=== PATIENT | male | born 1970 | race Caucasian/White ===

== ENCOUNTER 2017-05-01 19:43 | Emergency (ER) | payer SELFPAY ==
[~2017-05-01] VITALS: Ht 177.8 cm; Wt 80.0 kg
[2017-05-01 20:01] VITALS: BP 134/95; PULSE 84; RESP 18; TEMP 98.4; O2SAT 100
[2017-05-01] MEDS ORDERED: IBUPROFEN 800 MG TAB PO ONE (20:15)
--- NOTE | 2017-05-01 20:17 | PD ---
HPI Chief Complaint: Injury Time Seen by Provider: 20:12 Travel History International Travel<30 days: No Contact w/Intl Traveler<30days: No Traveled to known affect area: No History of Present Illness HPI 46-year-old male presents to the emergency department for evaluation of right foot pain. Patient states that 2 weeks ago he went to kick a soccer ball when he kicked the ground instead. He was seen at [place] hospital [place] who x-ray today and told him there was no fracture. Patient states that he got a boot and has been wearing it with some improvement. He has noticed some ecchymosis since the original injury. However, today, he states he was going into spiritism and he might have hit his foot because he has had worsening pain since. Patient rates the pain 9/10, worse with movement, ambulation. Moderate severity. PFSH Past Medical History Medical History: Denies Significant Hx Diminished Hearing: No Tetanus Vaccination: < 5 Years Influenza Vaccination: No Past Surgical History Ear Surgery: Yes (tubes as a child B/L ears) Other Surgery: Yes (adniods) Social History Alcohol Use: No Tobacco Use: No Substance Use: No Allergies-Medications (Allergen,Severity, Reaction): Coded Allergies: No Known Allergies (Unverified , 05/01/17) Review of Systems Except as stated in HPI: all other systems reviewed are Neg Physical Exam Narrative GENERAL: Well-nourished, well-developed male patient, afebrile. SKIN: Focused skin assessment warm/dry. Patient has ecchymosis noted to the distal aspect of the right foot. HEAD: Normocephalic. Atraumatic. EYES: No scleral icterus. No injection or drainage. NECK: Supple, trachea midline. No JVD or lymphadenopathy. CARDIOVASCULAR: Right pedal pulse 2+. RESPIRATORY: No accessory muscle use. MUSCULOSKELETAL: No cyanosis, or edema. Patient has tenderness to palpation over right dorsal foot. No ankle tenderness to palpation. He has full sensation distal right lower extremity. Data Data Last Documented VS Vital Signs Date Time Temp Pulse Resp B/P (MAP) Pulse Ox O2 Delivery O2 Flow Rate FiO2 05/01/17 20:01 98.4 84 18 134/95 (108) 100 Orders Orders Foot, Complete ([id number]) (05/01/17 ) Ibuprofen (Motrin) (05/01/17 20:15) MDM Medical Decision Making Medical Screen Exam Complete: Yes Emergency Medical Condition: Yes Medical Record Reviewed: Yes Differential Diagnosis Fracture versus contusion versus sprain Narrative Course 46-year-old male presents to the emergency department for evaluation of right foot pain/possible injury. X-ray of the right foot is ordered and pending. Patient is given ibuprofen 800 mg by mouth. X-ray of the right foot is pending. YAW Bowman will follow up on x-ray results and disposition patient. Gladys Casey May 01, 2017 20:17
--- NOTE | 2017-05-01 21:09 | RADRPT ---
EXAM DATE/TIME: 05/01/2017 20:23 [facility] COMPARISON: No previous studies available for comparison. INDICATIONS : Right foot pain for 2 weeks. Patient has had the right foot pain since kicking a soccer ball. Pain mostly at the 1st and 2nd digit. MEDICAL HISTORY : None. SURGICAL HISTORY : None. ENCOUNTER: Initial ACUITY: 2 weeks PAIN SCORE: 4/10 LOCATION: Right foot. FINDINGS: There is a probable subtle acute fracture involving the base of the right first metatarsal. CONCLUSION: Probable subtle acute fracture involving the base of the right first metatarsal. Donal Trinh MD on May 01, 2017 at 21:04 Board Certified Radiologist. This report was verified electronically.
--- NOTE | 2017-05-01 21:23 | PD ---
Physical Exam Date Seen by Provider: May 01, 2017 Time Seen by Provider: 21:20 Narrative For full history and physical examination please see previous providers note. I assumed care of this patient change of shift, at that time x-ray of the foot was pending. Data Data Last Documented VS Vital Signs Date Time Temp Pulse Resp B/P (MAP) Pulse Ox O2 Delivery O2 Flow Rate FiO2 05/01/17 20:01 98.4 84 18 134/95 (108) 100 Orders Orders Foot, Complete ([id number]) (05/01/17 ) Ibuprofen (Motrin) (05/01/17 20:15) Post Op Boot (Shoe) (05/01/17 ) Ed Discharge Order (05/01/17 21:23) [facility] Medical Record Reviewed: Yes Supervised Visit with EDSON: No Interpretation(s) Vital Signs Date Time Temp Pulse Resp B/P (MAP) Pulse Ox O2 Delivery O2 Flow Rate FiO2 05/01/17 20:01 98.4 84 18 134/95 (108) 100 Narrative Course X-ray shows a probable subtle acute fracture about the base of the right first metatarsal. A mandatory referral has been placed to podiatry. Patient bought a walking boot he was encouraged to continue utilizing the boot and maintain nonweightbearing when possible. Patient cannot use crutches due to a shoulder injury. Patient can continue ibuprofen as previously prescribed. He is to return to emergency department for any new worsening symptoms. Patient verbalized understanding of instructions. Patient stable for discharge. Diagnosis Primary Impression: Foot fracture Qualified Codes: S92.901D - Unspecified fracture of right foot, subsequent encounter for fracture with routine healing Referrals: Network Administrator 3 days Patient Instructions: General Instructions Additional Instruction: Follow-up with a professional healthcare representative Utilize walking boot when ambulating Take ibuprofen or acetaminophen as needed and as directed for pain, he may apply cool compresses to the affected area Return to emergency department for any new or worsening symptoms Med/Other Pt SpecificInfo: No Meds Exist/No RX given Disposition: DISCHARGE HOME Condition: Stable Gracie Mccoy Sandi TIDWELL May 01, 2017 21:23
== END 2017-05-01 21:53 | disposition home or self-care (01) ==
LOC: NEPK 19:43 → NEPD 21:53
DX: S92.901D Unspecified fracture of right foot, subsequent encounter for fracture with routine healing (principal); W22.8XXA Striking against or struck by other objects, initial encounter; Y93.66 Activity, soccer
CPT/HCPCS: 73630; 99283; L3260